=== PATIENT | female | born 1985 | race Two or more races ===

== ENCOUNTER 2018-07-26 12:42 | Emergency (ER) | payer MEDICAID ==
[~2018-07-26] VITALS: Ht 162.6 cm; Wt 87.7 kg
[2018-07-26 13:23] LABS: CLARITY,URINE CLEAR (Clear); COLOR,URINE YELLOW (Yellow); GLUCOSE, URINE NEGATIVE (Neg); KETONES,URINE NEGATIVE (Neg); LEUKOCYTE ESTERASE ,URINE NEGATIVE (Neg); NITRITES, URINE NEGATIVE (Neg); OCCULT BLOOD,URINE NEGATIVE (Neg); PROTEIN,URINE NEGATIVE (Neg); UROBILINOGEN,URINE 0.2 E.U/dL (0.2-1.0)
[2018-07-26 13:25] LABS: URINE HCG NEGATIVE (NEG)
[2018-07-26] MEDS ORDERED: ondansetron 4mg rapidly disintigrating tab PO ONE (13:30)
[2018-07-26 13:45] LABS: UA COLLECTION TYPE CLN CATCH MIDSTREAM
[2018-07-26 14:42] VITALS: BP 122/61
== END 2018-07-26 14:44 | disposition home or self-care (01) ==
LOC: ER 12:44
DX: R10.31 Right lower quadrant pain (principal); R10.32 Left lower quadrant pain; R11.0 Nausea; R42 Dizziness and giddiness; Z88.1 Allergy status to other antibiotic agents
CPT/HCPCS: 76856; 81003; 81025; 99285